=== PATIENT | female | born 1990 | race Asian ===

== ENCOUNTER → 2016-10-14 | Outpatient (CLI) | payer OTHER ==
[2016-10-17 08:47] LABS: CHLAMYDIA TRACH RNA*** NOT DETECTED (NOT DETECTED); GC (NEIS GONORRHOEAE)RNA** NOT DETECTED (NOT DETECTED)
== END | disposition home or self-care (01) ==
LOC: C.LABSPEC 15:45
PROVIDERS: ATTEND Obstetrics & Gynecology
DX: Z34.81 Encounter for supervision of other normal pregnancy, first trimester (principal)

== ENCOUNTER → 2016-10-14 | Outpatient (CLI) | payer OTHER | END | disposition home or self-care (01) | LOC: C.PAPS 16:10 | PROVIDERS: ATTEND Obstetrics & Gynecology | DX: Z34.81 Encounter for supervision of other normal pregnancy, first trimester (principal) ==

== ENCOUNTER 2016-10-18 09:49 | Day surgery (SDC) | payer OTHER ==
--- NOTE | 2016-10-17 10:38 | HISTORY & PHYSICAL EXAMINATION ---
DATE OF ADMISSION: 10/17/2016 CHIEF COMPLAINT: Blighted ovum. HISTORY OF PRESENT ILLNESS: The patient is a 26-year-old 2, para 1 [place] female, who is in good general health. Last menstrual period was 06/28/2016, previously delivered a daughter in 2014. She delivered in [place], vaginal delivery at term. weight 7.5 pounds. I saw her for her first visit, was unable to get heart tones. I then ordered a transvaginal ultrasound. By her last menstrual period, she should be 15 weeks and 4 days and at that time, the ultrasound showed a 10 week 2 days size sac with no pole inside the sac. Given this is a diagnosis of a blighted ovum, she is presently being scheduled for an outpatient D&E. PAST MEDICAL HISTORY: No history of rheumatic fever, heart disease, heart murmur, diabetes, tuberculosis. ALLERGIES: No known drug allergies. PAST SURGICAL HISTORY: No previous surgery. SOCIAL HISTORY: She has a girl, in good health. No smoking. No alcohol intake. Works as a housewife. FAMILY HISTORY: Mother is 50, in good health. Father 50, in good health. One brother, in good health. REVIEW OF SYSTEMS: HEAD: No symptoms of frequent or severe headaches. EYES: No symptoms of blurred vision, double vision. EARS: No symptoms of frequent ear infections, difficulty hearing. NOSE: No symptoms of frequent nosebleeds, difficulty breathing through her nose. THROAT: No symptoms of frequent or severe sore throats, difficulty swallowing. RESPIRATORY SYSTEM: No history of asthma, chest pain, shortness of breath. PHYSICAL EXAMINATION: GENERAL: Well-developed, well-nourished 26-year-old [place] female, alert, oriented x3 and cooperative, in no acute distress, appears stated age. EYES: Conjunctivae are pink, sclerae white, no evidence of jaundice. EARS: Had normal light reflex bilaterally. NOSE: Had normal mucosa. Septum is midline. There were no polyps. THROAT: No erythema or evidence of infection. Teeth are in good state of repair. HEAD: Normocephalic, normal distribution of hair. NECK: Supple. Trachea midline. Thyroid is not enlarged. There is no adenopathy appreciated. Both carotids are of good intensity. CHEST: Clear to auscultation and percussion. No wheezes, rales or rhonchi appreciated. HEART: Regular rhythm. S1 and S2 are normal. BREASTS: Normal. LUNGS: Clear to auscultation and percussion. PELVIC: Revealed a normal appearing cervix. Uterus was about 10-11 weeks gestational size. There were no adnexal masses appreciated. MUSCULOSKELETAL: Revealed no calf tenderness. IMPRESSIONS OF THIS CASE: Blighted ovum.
[2016-10-17 12:08] LABS: BASO % 0.3 %; BASO ABS # 0.03 K/uL (0-0.2); COMPLETE YES; EOS % 0.4 %; HEMATOCRIT 40.2 % (37-47); IG% 0.2 %; LYMPH % 29.7 %; LYMPH ABS # 3.01 K/uL (1.2-3.4); MEAN CELL VOLUME 86.8 fL (80-100); MEAN CORPUSCULAR HEMOGLOBIN 29.4 pg (25-34); MEAN CORPUSCULAR HGB CONC 33.8 g/dl (32-36); MEAN PLATELET VOLUME 9.4 fL (7.4-10.4); NEUT % 64.4 %; PLATELET COUNT 225 K/uL (130-400); RED BLOOD COUNT 4.63 M/uL (4.2-5.4); WHITE BLOOD COUNT 10.13 K/uL (4.8-10.8)
[~2016-10-18] VITALS: Ht 157.5 cm; Wt 44.5 kg
[~2016-10-18 09:49] MED LIST: LACTATED RINGER'S 1000ML 1,000 ML IV SCH
[2016-10-18 10:24] VITALS: BP 111/62; PULSE 91; TEMP 36.6; O2SAT 98; Ht 157.5 cm; Wt 44.5 kg
--- NOTE | 2016-10-18 11:50 | History & Physical Bridge Note ---
H&P Re-Evaluation Bridge Note: I have examined the patient, reviewed the History & Physical and in the interval since the performance of the History & Physical I have noted the following changes of clinical significance: No changes noted
[2016-10-18] MEDS ORDERED: MIDAZOLAM HCL 1 MG/ML 2ML VIAL ONE (12:15)
[2016-10-18] MEDS ORDERED: FENTANYL CITRATE INJ 50 MCG/1 ML 2 ML VIAL ONE (12:16)
[2016-10-18] MEDS ORDERED: LIDOCAINE HCL 2% 2 ML VIAL (20MG/ML) ONE (12:16)
[2016-10-18] MEDS ORDERED: PROPOFOL IV EMULSION 10 MG/ML 20 ML VIAL IV ONE (12:16)
[2016-10-18] MEDS ORDERED: EpHEDrine SULFATE INJ 50 MG/ML AMP IV PRN (12:30)
[2016-10-18] MEDS ORDERED: ATROPINE SULFATE 0.1 MG/ML 5ML SYR IV PRN (12:30)
[2016-10-18] MEDS ORDERED: FENTANYL CITRATE INJ 50 MCG/1 ML 2 ML VIAL IV PRN (12:30)
[2016-10-18] MEDS ORDERED: PROMETHAZINE HCL INJ 6.25 MG in SODIUM CHLORIDE 0.9% 50ML 50 ML IV PRN (12:30)
[2016-10-18] MEDS ORDERED: ONDANSETRON INJ 2 MG/ML 2 ML VIAL IV PRN ×2 (12:30→13:45)
[2016-10-18] MEDS ORDERED: OXYTOCIN INJ 10 UNITS/ML VIAL ONE (13:38)
[2016-10-18] MEDS ORDERED: ONDANSETRON INJ 2 MG/ML 2 ML VIAL ONE (13:38)
[2016-10-18] MEDS ORDERED: DEXAMETHASONE SOD INJ 4 MG/ML VIAL ONE (13:38)
[2016-10-18] MEDS ORDERED: OXYCODONE/ACETAMINOPHEN 5-325 TAB PO PRN ×2 (13:45)
[2016-10-18] MEDS ORDERED: HYDROCODONE/ACETAMOPHEN 5/325MG TAB PO PRN ×4 (13:45)
[2016-10-18] MEDS ORDERED: IBUPROFEN 600 MG TAB PO PRN (13:45)
[2016-10-18] MEDS ORDERED: KETOROLAC TROMETHAMINE 15 MG/ML VIAL IV. PRN (13:45)
--- NOTE | 2016-10-18 13:47 | Discharge Instructions ---
Discharge Instructions Date of Service Oct 18, 2016. Visit Reason for Visit: Missed Discharge Discharge Diagnosis / Problem: MISSED Discharge Goals Goal(s): Improve function Activity Recommendations Activity Limitations: as noted below ACTIVITY RECOMMENDATIONS: * Avoid tampons, douching, hot tubs, pools, and intercourse until bleeding has stopped. * May shower as usual. * No strenuous activity for 24-48 hours. After 24-48 hours, you may do anything you feel like doing (driving and sports are okay). SPECIAL CARE INSTRUCTIONS: Special Diet: * Mild nausea may occur in the immediate post-operative period. * Take clear liquids such as tea, cola or bouillon until all nausea has subsided; you may then resume your normal diet. Special Care: * Light bleeding and vaginal spotting can last from a few days to 3-4 weeks. Call your doctor if bleeding becomes heavier than the heaviest part of your period. * Check your temperature twice a day for one week. If it goes above 100.4 degrees Fahrenheit (38.0 Celsius), notify your doctor. * Call your doctor's office for an appointment for 6 weeks after your surgery. FOLLOW-UP VISIT: Call your doctor's office for an appointment for 6 weeks after your surgery. Anesthesia . Post Anesthesia Instructions: If you have had General Anesthesia or IV Sedation: * Do not drive today. * Resume driving when surgeon permits. * Do not make important decisions or sign legal documents today. * Call surgeon for: 1. Temperature elevations greater than 101 degrees F. 2. Uncontrollable pain. 3. Excessive bleeding. 4. Persistent nausea and vomiting. 5. Medication intolerance (nausea, vomiting or rash). * For nausea and vomiting use only clear liquids such as: tea, soda, bouillon until nausea subsides, then gradually increase diet as tolerated. * If you have any concerns or questions, call your surgeon's office. If physician is unavailable and it is an emergency, call 911 or go to the nearest emergency room. . Diet Recommendations Recommended Home Diet: resume previous diet Pending Studies Studies pending at discharge: no Medical Emergencies . Who to Call and When: Medical Emergencies: If at any time you feel your situation is an emergency, please call 911 immediately. . Non-Emergent Contact Non-Emergency issues call your: Aircraft Lay Out Worker Call Non-Emergent contact if: temperature is above 100.5 . . "Provider Documentation" section prepared by Amish Black. .
--- NOTE | 2016-10-18 13:48 | [facility] Post Operative Brief Note ---
Immediate Operative Summary Operative Date Oct 18, 2016. Pre-Operative Diagnosis MISSED Post-Operative Diagnosis MISSED Procedure(s) Performed Dilation and Evacuation Surgeon DR. JERRICA ROSAS Rolling Chair Pusher Surgeon(s) NONE Estimated Blood Loss 300ML Findings UTERINE CONTENTS Specimens A. PRODUCTS OF CONCEPTION Complication(s) None Disposition Recovery Room / PACU
[2016-10-18] MEDS ORDERED: SODIUM CHLORIDE 0.9% 1000ML 1,000 ML IV SCH (14:00)
--- NOTE | 2016-10-18 14:40 | Anesthesiology Progress Note ---
Anesthesia Post Op Note Date & Time Oct 18, 2016 at 14:40 Vital Signs Pain Intensity: 0 Vital Signs Past 12 Hours Date Time Temp Pulse Resp B/P (MAP) Pulse Ox O2 Delivery O2 Flow Rate FiO2 10/18/16 14:32 56 11 100 10/18/16 14:32 56 11 10/18/16 14:31 97/62 10/18/16 14:27 53 13 100 10/18/16 14:27 53 13 10/18/16 14:26 36.4 52 16 97/62 (72) 100 Room Air 10/18/16 14:26 96/54 10/18/16 14:22 55 14 10/18/16 14:22 55 14 100 10/18/16 14:21 108/58 10/18/16 14:20 62 21 100 10/18/16 14:20 60 21 10/18/16 14:16 97/60 10/18/16 14:15 57 10 10/18/16 14:15 58 10 100 10/18/16 14:11 98/60 10/18/16 14:10 65 13 100 10/18/16 14:10 64 13 10/18/16 14:06 97/54 10/18/16 14:05 63 13 100 10/18/16 14:05 62 13 10/18/16 14:01 88/50 10/18/16 14:00 36.1 65 16 88/50 (61) 100 Mask 10 10/18/16 14:00 62 18 10/18/16 14:00 63 18 100 10/18/16 10:24 36.6 91 16 111/62 (78) 98 Room Air Notes Mental Status: alert / awake / arousable, participated in evaluation Pt Amnestic to Procedure: Yes Nausea / Vomiting: adequately controlled Pain: adequately controlled Airway Patency, RR, SpO2: stable & adequate BP & HR: stable & adequate Hydration State: stable & adequate Anesthetic Complications: no major complications apparent
--- NOTE | 2016-10-18 14:45 | Anesthesiology Progress Note ---
Anesthesia Post Op Note Date & Time Oct 18, 2016 at 14:45 Vital Signs Pain Intensity: 0 Vital Signs Past 12 Hours Date Time Temp Pulse Resp B/P (MAP) Pulse Ox O2 Delivery O2 Flow Rate FiO2 10/18/16 14:38 59 15 100 10/18/16 14:38 58 15 10/18/16 14:36 104/63 10/18/16 14:33 52 15 100 10/18/16 14:33 53 15 10/18/16 14:32 56 11 100 10/18/16 14:32 56 11 10/18/16 14:31 97/62 10/18/16 14:27 53 13 100 10/18/16 14:27 53 13 10/18/16 14:26 36.4 52 16 97/62 (72) 100 Room Air 10/18/16 14:26 96/54 10/18/16 14:22 55 14 10/18/16 14:22 55 14 100 10/18/16 14:21 108/58 10/18/16 14:20 62 21 100 10/18/16 14:20 60 21 10/18/16 14:16 97/60 10/18/16 14:15 57 10 10/18/16 14:15 58 10 100 10/18/16 14:11 98/60 10/18/16 14:10 65 13 100 10/18/16 14:10 64 13 10/18/16 14:06 97/54 10/18/16 14:05 63 13 100 10/18/16 14:05 62 13 10/18/16 14:01 88/50 10/18/16 14:00 36.1 65 16 88/50 (61) 100 Mask 10 10/18/16 14:00 62 18 10/18/16 14:00 63 18 100 10/18/16 10:24 36.6 91 16 111/62 (78) 98 Room Air Notes Mental Status: alert / awake / arousable, participated in evaluation Pt Amnestic to Procedure: Yes Nausea / Vomiting: adequately controlled Pain: adequately controlled Airway Patency, RR, SpO2: stable & adequate BP & HR: stable & adequate Hydration State: stable & adequate Anesthetic Complications: no major complications apparent
--- NOTE | 2016-10-18 14:50 | OPERATIVE REPORT ---
DATE OF OPERATION: 10/18/2016 INDICATIONS FOR SURGERY: Blighted ovum. PREOPERATIVE DIAGNOSES: Intrauterine , 15 weeks gestational size, 11 weeks sac size, no fetus present. POSTOPERATIVE DIAGNOSES: Same. PATHOLOGY: Pending. SURGEON: Dr. Black. ESTIMATED BLOOD LOSS: 300 mL. ANESTHESIA: General. OPERATIVE FINDINGS AND PROCEDURE: The patient was brought to the OR table, correctly identified by armband and conversation. General anesthesia was administered. Perineum and vagina were painted with Betadine paint, draped in the usual sterile fashion. Catheter was used to empty the bladder. Careful pelvic exam under anesthesia revealed an 11 weeks' size uterus, anteverted, no adnexal masses appreciated. Weighted speculum was placed in the posterior vagina. Anterior lip of the cervix was grasped with an Allis. Cervix was dilated with graduated dilators. A #10 suction curette was placed in the uterine cavity. Suction was applied. Amniotic fluid and placental tissue could be seen coming through the curette. After the first 2 passes with the suction curette, a sharp curette was placed in the uterine cavity. The cavity was then gently curetted and the suction was reapplied to remove all remaining fragments and debris. Following this with IV Pitocin running, the bimanual massage uterus contracted nicely and instruments were removed. The patient left the OR in good condition. I attest to the content of the Intraoperative Record and any orders documented therein. Any exception s are noted below.
[2016-10-18 14:55] VITALS: BP 121/72; PULSE 54; TEMP 36.5; O2SAT 96
[2016-10-18 15:25] VITALS: BP 106/72; PULSE 58; TEMP 36.6; O2SAT 99
[2016-10-18 15:55] VITALS: BP 107/61; PULSE 55; TEMP 36.6; O2SAT 98
--- NOTE | 2016-10-22 09:41 | HISTORY & PHYSICAL EXAMINATION ---
DATE OF ADMISSION: 10/18/2016 CHIEF COMPLAINT: Blighted ovum on ultrasound. HISTORY OF PRESENT ILLNESS: The patient is a 26-year-old 2, para 1, general health is good. Last menstrual period was 06/28/2016. Her obstetrical history is as follows: She delivered a live female 7-1/2 pounds 2015 in [place], spontaneous vaginal delivery. She was seen for her first visit in my office. We were unable to obtain heart tones. Transvaginal ultrasound was done on 10/15/2016 that showed an empty gestational sac, size of 10 weeks and 2 days. By gestation the sac size should have been 15 weeks and 4 days. Diagnosed as having a blighted ovum and scheduled for an outpatient D&E. PAST MEDICAL HISTORY: She has a girl in good health. No previous medical conditions. PAST SURGICAL HISTORY: No previous surgery. ALLERGIES: No known drug allergies. SOCIAL HISTORY: No smoking. No alcohol intake. Works as a housewife. FAMILY HISTORY: Mom is 50 in good health. Father 50 in good health. One sister in good health. REVIEW OF SYSTEMS: HEAD: No symptoms of frequent or severe headaches. EYES: No symptoms of blurred vision, double vision. EARS: No symptoms of frequent ear infections, difficulty hearing. NOSE: No symptoms of frequent nosebleeds, difficulty breathing through her nose. PHYSICAL EXAMINATION: GENERAL: Well-developed, well-nourished 26-year-old [place] female, alert, oriented x3 and cooperative in no acute distress, appeared her stated age. EYES: Conjunctivae are pink. Sclerae white. No evidence of jaundice. EARS: Had normal light reflex bilaterally. NOSE: Had normal mucosa. Septum is midline. There were no polyps. THROAT: No erythema or evidence of infection. Teeth are in good state of repair. HEAD: Was normocephalic, normal distribution of hair. NECK: Supple. Trachea midline. Thyroid is not enlarged. There is no adenopathy appreciated. Both carotids are of good intensity. CHEST: Clear to auscultation and percussion. No wheezes, rales or rhonchi appreciated. HEART: Had regular rhythm. S1 and S2 are normal. BREAST EXAMINATION: Normal. ABDOMEN: Soft and nontender. PELVIC EXAMINATION: Revealed a normal appearing cervix. Bimanual exam revealed a uterine size of about 10-11 weeks' gestation. MUSCULOSKELETAL EXAMINATION: Revealed no calf tenderness. IMPRESSIONS OF THIS CASE: Blighted ovum.
== END 2016-10-18 15:55 | disposition home or self-care (01) ==
LOC: C.ACU 09:49
PROVIDERS: ATTEND Obstetrics & Gynecology
DX: O02.0 Blighted ovum and nonhydatidiform mole (principal)